=== PATIENT | female | born 1995 | race Caucasian/White ===

== ENCOUNTER → 2018-05-08 | Outpatient (CLI) | payer OTHER ==
[2018-05-11 02:19] LABS: CHLAMYDIA TRACHOMATIS, NAA Negative (Negative); NEISSERIA GONORRHOEAE, NAA Negative (Negative)
== END | disposition home or self-care (01) ==
LOC: LAB 15:35 → LAB SHORT 15:35
PROVIDERS: Obstetrics & Gynecology
DX: Z11.3 Encounter for screening for infections with a predominantly sexual mode of transmission (principal)
CPT/HCPCS: 87491; 87591

== ENCOUNTER → 2018-10-06 | Outpatient (CLI) | payer OTHER ==
[2018-10-06 12:30] LABS: Bilirubin, Urine Neg (Neg); Blood, Urine 5+ (Neg); Glucose Qualitative, Urine Neg (Neg); Ketones, Urine Neg (Neg); Leukocyte Esterase, Urine 3+ (Neg); Nitrite, Urine Pos (Neg); Protein, Urine 3+ (Neg); Urobilinogen, Urine NORM (Normal)
[2018-10-06 12:53] LABS: Appearance, Urine Cloudy (Clear); Color, Urine Yellow (P-Yellow)
[2018-10-06 12:55] LABS: Bacteria Many /hpf; Squamous Epithelial Cells Few /hpf (Few); White Blood Cells, Urine TNTC /hpf (0-5)
== END | disposition home or self-care (01) ==
LOC: LAB 11:15 → LAB SHORT 11:15
PROVIDERS: Obstetrics & Gynecology
DX: R31.9 Hematuria, unspecified (principal); R82.998 Other abnormal findings in urine
CPT/HCPCS: 81001; 87077; 87086; 87186

== ENCOUNTER 2018-10-12 16:08 | Emergency (ER) | payer OTHER | END 2018-10-12 16:52 | disposition left against medical advice (07) | LOC: ER 16:08 | DX: Z53.21 Procedure and treatment not carried out due to patient leaving prior to being seen by health care provider (principal) ==

== ENCOUNTER → 2018-10-24 | Outpatient (CLI) | payer OTHER ==
[~2018-10-24] MED LIST: IBUP800 PO; NITR100CA; ONDA4ODT; Verotin-Gr Cap1 EACH PO; Vitamin B-650 MG
== END | disposition home or self-care (01) ==
LOC: LAB SHORT 14:58 → LAB 14:58
DX: Z34.00 Encounter for supervision of normal first pregnancy, unspecified trimester (principal)
CPT/HCPCS: 87081; 87653

== ENCOUNTER 2018-11-28 08:00 | Inpatient (IN) | payer OTHER ==
[~2018-11-28] VITALS: Ht 162.6 cm; Wt 0.1 kg
[2018-11-28 08:51] LABS: BASOPHILS ABSOLUTE AUTO 0.04 K/mm3 (0.00-0.23); BASOPHILS PERCENT AUTO 0 % (0-2); EOSINOPHILS ABSOLUTE AUTO 0.06 K/mm3 (0.00-0.68); EOSINOPHILS PERCENT AUTO 0 % (0-6); Hematocrit 34.5 % (33.0-51.0); Hemoglobin 11.3 g/dL (11.5-16.0); IMMATURE GRAN ABSOLUTE AUTO 0.07 K/mm3 (0.00-0.10); IMMATURE GRAN PERCENT AUTO 0 % (0-1); LYMPHOCYTES ABSOLUTE AUTO 2.95 K/mm3 (0.84-5.20); LYMPHOCYTES PERCENT AUTO 19 % (21-46); MONOCYTES ABSOLUTE AUTO 0.97 K/mm3 (0.16-1.47); MONOCYTES PERCENT AUTO 6 % (4-13); Mean Corpuscular HGB Conc 32.8 g/dL (31.5-36.5); Mean Corpuscular Volume 89 fL (80-100); Mean Platelet Volume 10.8 fL (9.1-12.4); NEUTROPHILS ABSOLUTE AUTO 11.53 K/mm3 (1.96-9.15); NEUTROPHILS PERCENT AUTO 74 % (41-73); Platelet Count 391 K/mm3 (150-400); RDW Coefficient Variation 15.3 % (11.7-14.2); RDW Standard Deviation 49.3 fL (35.1-46.3); Red Blood Cell Count 3.89 M/mm3 (3.80-5.20); White Blood Cell Count 15.62 K/mm3 (4.00-11.30)
[2018-11-28] MEDS ORDERED: Verotin-Gr Cap1 EACH PO (08:53)
[2018-11-28] MEDS ORDERED: ONDA4ODT (08:54)
[2018-11-28] MEDS ORDERED: NITR100CA (08:54)
[2018-11-28] MEDS ORDERED: Vitamin B-650 MG (08:55)
[2018-11-29 05:54] LABS: Hematocrit 31.4 % (33.0-51.0); Hemoglobin 9.9 g/dL (11.5-16.0); Mean Corpuscular HGB 27.8 pg (26.0-34.0); Mean Corpuscular HGB Conc 31.5 g/dL (31.5-36.5); Mean Corpuscular Volume 88 fL (80-100); Mean Platelet Volume 10.6 fL (9.1-12.4); Platelet Count 339 K/mm3 (150-400); RDW Coefficient Variation 15.4 % (11.7-14.2); RDW Standard Deviation 49.5 fL (35.1-46.3); Red Blood Cell Count 3.56 M/mm3 (3.80-5.20); White Blood Cell Count 18.74 K/mm3 (4.00-11.30)
--- NOTE | 2018-11-29 10:18 | NUR ---
Pt sleeping soundly. Did not wake when RN entered room to speak w/family.
[2018-11-29] MEDS ORDERED: IBUP800 PO (17:14)
--- NOTE | 2018-11-29 18:36 | NUR ---
Printed d/c instructions and teaching reviewed w/pt and family. Questions answered to her satisfaction. ID bands matched w/nb and verification form. No acute changes this shift. Will call when ready to d/c.
--- NOTE | 2018-12-06 12:41 | NUR ---
late entry for yanes placement and removal
== END 2018-11-29 18:48 | disposition home or self-care (01) | DRG 807 ==
LOC: OBS 08:00 → BC 08:04 → OBS 08:05 → BC 08:06
PROVIDERS: ADMIT Obstetrics & Gynecology
PROC: 10E0XZZ Delivery of Products of Conception, External Approach (ICD-10-PCS; principal; 2018-11-28)
PROC: 3E033VJ Introduction of Other Hormone into Peripheral Vein, Percutaneous Approach (ICD-10-PCS; 2018-11-28)
PROC: 10907ZC Drainage of Amniotic Fluid, Therapeutic from Products of Conception, Via Natural or Artificial Opening (ICD-10-PCS; 2018-11-28)
PROC: 3E0R3BZ Introduction of Anesthetic Agent into Spinal Canal, Percutaneous Approach (ICD-10-PCS; 2018-11-28)
DX: O48.0 Post-term pregnancy (principal); Z37.0 Single live birth; Z3A.40 40 weeks gestation of pregnancy
CPT/HCPCS: 36415; 85025; 85027; J1885; J2405; J2590; J3010; J7120

== ENCOUNTER → 2019-03-14 | Outpatient (CLI) | payer OTHER ==
[2019-03-17 03:11] LABS: CHLAMYDIA TRACHOMATIS, NAA Negative (Negative); NEISSERIA GONORRHOEAE, NAA Negative (Negative)
== END | disposition home or self-care (01) ==
LOC: LAB 16:28 → LAB SHORT 16:28
PROVIDERS: Obstetrics & Gynecology
DX: Z01.419 Encounter for gynecological examination (general) (routine) without abnormal findings (principal); Z11.3 Encounter for screening for infections with a predominantly sexual mode of transmission
CPT/HCPCS: 87491; 87591; G0123

== ENCOUNTER → 2019-08-20 | Outpatient (CLI) | payer OTHER ==
[2019-08-21 06:33] LABS: Candida species (DNA Probe) Negative (NEGATIVE); G. vaginalis (DNA Probe) Positive (NEGATIVE); T. vaginalis (DNA Probe) Negative (NEGATIVE)
== END | disposition home or self-care (01) ==
LOC: LAB 12:32 → LAB SHORT 12:32
PROVIDERS: Advanced Practice Midwife
DX: N76.0 Acute vaginitis (principal)
CPT/HCPCS: 87480; 87510; 87660

== ENCOUNTER → 2020-02-08 | Outpatient (CLI) | payer OTHER ==
[2020-02-08 14:51] LABS: G. vaginalis (DNA Probe) Positive (NEGATIVE); T. vaginalis (DNA Probe) Negative (NEGATIVE)
[2020-02-08 14:52] LABS: Candida species (DNA Probe) Positive (NEGATIVE)
== END ==
LOC: LAB SHORT 11:00 → LAB 11:00
PROVIDERS: Advanced Practice Midwife
DX: N76.0 Acute vaginitis (principal)
CPT/HCPCS: 87480; 87510; 87660

== ENCOUNTER → 2020-06-21 | Outpatient (CLI) | payer OTHER ==
[~2020-06-21] MED LIST changes: +ONDA4ODT SL
== END | disposition home or self-care (01) ==
LOC: LAB SHORT 14:49 → LAB EV 14:49
DX: R50.9 Fever, unspecified (principal); Z20.828 Contact with and (suspected) exposure to other viral communicable diseases
CPT/HCPCS: U0003

== ENCOUNTER 2021-11-04 18:40 | Emergency (ER) | payer OTHER ==
[~2021-11-04] VITALS: Ht 162.6 cm; Wt 70.3 kg
[2021-11-04 19:11] LABS: Source, Urine Clean Catch
[2021-11-04 19:21] LABS: Appearance, Urine Hazy (Clear); Bilirubin, Urine Neg (Neg); Blood, Urine 5+ (Neg); Color, Urine Yellow (P-Yellow); Glucose Qualitative, Urine Neg (Neg); Ketones, Urine 3+ (Neg); Leukocyte Esterase, Urine 2+ (Neg); Nitrite, Urine Pos (Neg); Protein, Urine 2+ (Neg); Urobilinogen, Urine 1+ (Normal)
[2021-11-04 19:32] LABS: White Blood Cells, Urine 25-50 /hpf (0-5)
[2021-11-04 19:33] LABS: Bacteria Many /hpf; Squamous Epithelial Cells Few /hpf (Few)
[2021-11-04 20:31] LABS: BASOPHILS ABSOLUTE AUTO 0.04 K/mm3 (0.00-0.23); BASOPHILS PERCENT AUTO 0 % (0-2); EOSINOPHILS PERCENT AUTO 0 % (0-6); Hematocrit 38.4 % (33.0-51.0); Hemoglobin 12.8 g/dL (11.5-16.0); IMMATURE GRAN ABSOLUTE AUTO 0.07 K/mm3 (0.00-0.10); IMMATURE GRAN PERCENT AUTO 0 % (0-1); LYMPHOCYTES ABSOLUTE AUTO 1.06 K/mm3 (0.84-5.20); LYMPHOCYTES PERCENT AUTO 6 % (21-46); MONOCYTES ABSOLUTE AUTO 1.67 K/mm3 (0.16-1.47); MONOCYTES PERCENT AUTO 10 % (4-13); Mean Corpuscular HGB 28.8 pg (26.0-34.0); Mean Corpuscular HGB Conc 33.3 g/dL (31.5-36.5); Mean Corpuscular Volume 87 fL (80-100); Mean Platelet Volume 10.2 fL (9.1-12.4); NEUTROPHILS ABSOLUTE AUTO 14.27 K/mm3 (1.96-9.15); NEUTROPHILS PERCENT AUTO 83 % (41-73); Platelet Count 326 K/mm3 (150-400); RDW Coefficient Variation 13.9 % (11.7-14.2); RDW Standard Deviation 44.1 fL (35.1-46.3); Red Blood Cell Count 4.44 M/mm3 (3.80-5.20); White Blood Cell Count 17.11 K/mm3 (4.00-11.30)
[2021-11-04 20:52] LABS: Alanine Aminotransfer (ALT/SGP 32 U/L (12-78); Albumin, Blood 3.6 g/dL (3.4-5.0); Albumin/Globulin Ratio 0.9 (0.8-1.8); Alk Phos 86 U/L (50-136); Anion Gap 8 mmol/L (6-16); Aspartate Aminotrans (AST/SGOT 19 U/L (12-37); Bilirubin, Total 0.5 mg/dL (0.1-1.0); Blood Urea Nitrogen 9 mg/dL (8-24); Bun/Creatinine Ratio 12.1 (12.0-20.0); CO2, Blood 25 mmol/L (21-32); Chloride, Blood 104 mmol/L (98-108); Creatinine, Blood 0.75 mg/dL (0.40-1.00); Globulin, Blood 4.2 g/dL (2.2-4.0); Glomerular Filtration Rate >60 (60-); Glucose, Blood 110 mg/dL (70-99); Potassium, Blood 3.5 mmol/L (3.5-5.5); Sodium, Blood 137 mmol/L (136-145); Total Protein, Blood 7.8 g/dL (6.4-8.2)
[2021-11-04] MEDS ORDERED: CEPH500 PO (21:46)
== END 2021-11-04 22:16 | disposition home or self-care (01) ==
LOC: ER 18:40
PROVIDERS: Physician Assistant; Student in an Organized Health Care Education/Training Program
DX: N12 Tubulo-interstitial nephritis, not specified as acute or chronic (principal); F17.210 Nicotine dependence, cigarettes, uncomplicated
CPT/HCPCS: 74176; 80053; 81001; 81025; 83605; 83690; 85025; 87077; 87086; 87186; 96365; 99284-25; J0696